=== PATIENT | female | born 1990 | race American Indian/Alaskan Native ===

== ENCOUNTER 2019-06-23 11:56 | Emergency (ER) | payer SELFPAY | END 2019-06-23 12:17 | disposition left against medical advice (07) | LOC: ED 11:56 | DX: R07.89 Other chest pain (principal); Z53.21 Procedure and treatment not carried out due to patient leaving prior to being seen by health care provider | CPT/HCPCS: 93005; 93010 ==

== ENCOUNTER 2019-06-25 11:38 | Emergency (ER) | payer SELFPAY ==
--- NOTE | 2019-06-25 11:55 | Emergency Department Report ---
Blank Doc - Documentation Documentation: 29 year old female 2 weeks presents with white discharge and pelvic p ain severe. history of A2 his initial assessment/diagnostic orders/clinical plan/treatment(s) is/are subject to change based on patient's health status, clinical progression and re-assessment by fellow clinical providers in the ED. Further treatment and workup at subsequent clinical providers discretion. Patient/guardians urged not to elope from the ED as their condition may be serious if not clinically assessed and managed. Initial orders include: Labs and us with UA possible pelvic exam
[2019-06-25 12:39] LABS: Amorphous Crystals,Urine Few; Bilirubin,Urine NEG (Negative); Blood,Urine NEG (Negative); Color,Urine Yellow (Yellow); Mucus,Urine 2+ /HPF; Protein,Urine <15 mg/dL mg/dL (Negative); Urobilinogen,Urine < 2.0 mg/dL (<2.0)
[2019-06-25] MEDS ORDERED: TYLENOL PO ONE (13:20)
--- NOTE | 2019-06-25 13:40 | Emergency Department Report ---
ED Female HPI - General Chief complaint: Abdominal Pain Stated complaint: LEG PAIN/2WKS /NAUSEA Time Seen by Provider: 06/25/19 11:49 Source: patient, EMS Mode of arrival: Wheelchair Limitations: No Limitations - History of Present Illness Initial comments: This is a 29-year-old female presenting for her lower pelvic pain for the past week. Patient states she just found out a couple days ago that she was . Patient sustained a stretcher. Was 05/31/2019. Patient states her cycles are usually regular every month. She denies vaginal bleeding, vaginal discharge or dysuria MD Complaint: pelvic pain - Related Data Previous Rx's Medication Instructions Recorded Last Taken Type Acetaminophen [Acetaminophen 8 650 mg PO Q8H #30 tablet.er 06/25/19 Unknown Rx Hour] Allergies Allergy/AdvReac Type Severity Reaction Status Date / Time diphenhydramine Allergy Hives Verified 06/25/19 11:39 [From Benadryl] metoclopramide [From Reglan] Allergy Hives Verified 06/25/19 11:39 peanut Allergy Hives Verified 06/25/19 11:39 ED Review of Systems ROS: Stated complaint: LEG PAIN/2WKS /NAUSEA Other details as noted in HPI Comment: All other systems reviewed and negative ED Past Medical Hx - Past Medical History Hx Asthma: Yes - Surgical History Additional Surgical History: umbilical hernia repair - Social History Smoking Status: Never Smoker Substance Use Type: None - Medications Home Medications: Home Medications Medication Instructions Recorded Confirmed Last Taken Type Acetaminophen [Acetaminophen 8 650 mg PO Q8H #30 tablet.er 06/25/19 Unknown Rx Hour] ED Physical Exam - General Limitations: No Limitations General appearance: alert, in no apparent distress - Head Head exam: Present: atraumatic, normocephalic - Eye Eye exam: Present: normal appearance - ENT ENT exam: Present: mucous membranes moist - Neck Neck exam: Present: normal inspection - Respiratory Respiratory exam: Present: normal lung sounds bilaterally. Absent: respiratory distress - Cardiovascular Cardiovascular Exam: Present: regular rate, normal rhythm. Absent: systolic murmur, diastolic murmur, rubs, gallop - GI/Abdominal GI/Abdominal exam: Present: soft, normal bowel sounds - Extremities Exam Extremities exam: Present: normal inspection - Back Exam Back exam: Present: normal inspection - Neurological Exam Neurological exam: Present: alert, oriented X3 - Psychiatric Psychiatric exam: Present: normal affect, normal mood - Skin Skin exam: Present: warm, dry, intact, normal color. Absent: rash ED Course Vital Signs 06/25/19 06/25/19 11:46 15:14 Temperature 98.3 F Pulse Rate 77 71 Respiratory 18 16 Rate Blood Pressure 110/56 Blood Pressure 112/64 [Left] O2 Sat by Pulse 100 100 Oximetry ED Medical Decision Making - Lab Data Laboratory Last Values HCG, Quant 16683 mIU/mL (0-4) H 06/25/19 12:21 Urine Color Yellow (Yellow) 06/25/19 12:02 Urine Turbidity Clear (Clear) 06/25/19 12:02 Urine pH 7.0 (5.0-7.0) 06/25/19 12:02 Ur Specific [place] 1.020 (1.003-1.030) 06/25/19 12:02 Urine Protein <15 mg/dl mg/dL (Negative) 06/25/19 12:02 Urine Glucose (UA) Neg mg/dL (Negative) 06/25/19 12:02 Urine Ketones Neg mg/dL (Negative) 06/25/19 12:02 Urine Blood Neg (Negative) 06/25/19 12:02 Urine Nitrite Neg (Negative) 06/25/19 12:02 Urine Bilirubin Neg (Negative) 06/25/19 12:02 Urine Urobilinogen < 2.0 mg/dL (<2.0) 06/25/19 12:02 Ur Leukocyte Esterase Neg (Negative) 06/25/19 12:02 Urine WBC (Auto) 1.0 /HPF (0.0-6.0) 06/25/19 12:02 Urine RBC (Auto) 3.0 /HPF (0.0-6.0) 06/25/19 12:02 U Epithel Cells (Auto) 2.0 /HPF (0-13.0) 06/25/19 12:02 Amorphous Crystals Few 06/25/19 12:02 Urine Mucus 2+ /HPF 06/25/19 12:02 Blood Type B NEGATIVE 06/25/19 12:34 Antibody Screen Negative 06/25/19 12:34 Ord Rhogam Gestat Weeks <11 WEEKS 06/25/19 12:34 - Radiology Data Radiology results: report reviewed, image reviewed ULTRASOUND OBSTETRIC Indication: SEVERE PELVIC PAIN Findings: There is a twin, intrauterine [place]-rump length fetus a = 0.87 cm = 6 weeks, 6 day(s). [place]-rump length for fetus B = 16.6 mm equals 8 weeks, 1 day heart rate is 69 for twin a and 163 for twin B beats per minute. There is a 1.8 cm cyst in the left ovary. The right ovary is unremarkable. Impression: There is a twin intrauterine . There is discrepancy in size and heart rate between the fetuses. This will need to be followed as the progresses. Signer Name: Kevin Huang MD Signed: 06/25/2019 2:00 PM Workstation Name: [id number] Transcribed By: SS Dictated By: Kevin Huang MD Electronically Authenticated By: Kevin Huang MD Signed Date/Time: 06/25/19 1400 - Medical Decision Making 29-year-old female presents with pelvic pain in between gestation. Patient had no abnormal findings in the ED. Ultrasound shows twin gestation, see report above. Discussed with the patient results and findings. All labs were within normal limits. Discussed the patient to follow-up with [facility]. Vital signs are normal she is in no acute or respiratory distress. Patient understands instructions and states she will follow up with her [facility] at [place] to 3 days. - Differential Diagnosis UTI, ectopic, Critical care attestation.: If time is entered above; I have spent that time in minutes in the direct care of this critically ill patient, excluding procedure time. ED Disposition Clinical Impression: Twin gestation in first trimester, Pelvic pain during Disposition: -01 TO HOME OR SELFCARE Is pt being admited?: No Does the pt Need Aspirin: No Condition: Stable Instructions: Morning Sickness (ED), (ED), Abdominal Pain (ED), Abdominal Pain in (ED) Additional Instructions: Make sure to follow up with the [facility] at [facility] as discussed. Take all your medications as you've been prescribed. If you have any worsening symptoms or develop new symptoms please return to ED immediately. Prescriptions: Acetaminophen [Acetaminophen 8 Hour] 650 mg PO Q8H #30 tablet.er Referrals: PRIMARY CAREMD [Primary Care Provider] - 3-5 Days [facility] [Outside] - 3-5 Days [facility] [Provider Group] - 3-5 Days [facility] [Provider Group] - 3-5 Days Forms: Accompanied Note, Work/School Release Form(ED) Time of Disposition: 14:15
--- NOTE | 2019-06-25 14:04 | Ultrasound Report ---
ULTRASOUND OBSTETRIC Indication: SEVERE PELVIC PAIN Findings: There is a twin, intrauterine [place]-rump length fetus a = 0.87 cm = 6 weeks, 6 day(s). [place]-rump length for fetus B = 16.6 mm equals 8 weeks, 1 day heart rate is 69 for twin a and 163 for twin B beats per minute. There is a 1.8 cm cyst in the left ovary. The right ovary is unremarkable. Impression: There is a twin intrauterine . There is discrepancy in size and heart rate between the fetus es. This will need to be followed as the progresses. Signer Name: Kevin Huang MD Signed: 06/25/2019 2:00 PM Workstation Name: [id number]
--- NOTE | 2019-06-25 14:04 | Ultrasound Report ---
ULTRASOUND OBSTETRIC Indication: SEVERE PELVIC PAIN Findings: There is a twin, intrauterine [place]-rump length fetus a = 0.87 cm = 6 weeks, 6 day(s). [place]-rump length for fetus B = 16.6 mm equals 8 weeks, 1 day heart rate is 69 for twin a and 163 for twin B beats per minute. There is a 1.8 cm cyst in the left ovary. The right ovary is unremarkable. Impression: There is a twin intrauterine . There is discrepancy in size and heart rate between the fetus es. This will need to be followed as the progresses. Signer Name: Kevin Huang MD Signed: 06/25/2019 2:00 PM Workstation Name: [id number]
[2019-06-25 15:15] VITALS: BP 112/64
== END 2019-06-25 15:14 | disposition home or self-care (01) ==
LOC: ED 11:38
DX: O30.001 Twin pregnancy, unspecified number of placenta and unspecified number of amniotic sacs, first trimester (principal); O99.511 Diseases of the respiratory system complicating pregnancy, first trimester; J45.909 Unspecified asthma, uncomplicated; Z3A.01 Less than 8 weeks gestation of pregnancy; Z79.899 Other long term (current) drug therapy; Z88.8 Allergy status to other drugs, medicaments and biological substances; Z91.010 Allergy to peanuts
CPT/HCPCS: 36415; 76801; 76802; 76817; 81001; 84702; 86850; 86900; 86901; 96372; 99284

== ENCOUNTER 2019-06-30 23:49 | Emergency (ER) | payer SELFPAY | END 2019-07-01 00:11 | disposition left against medical advice (07) | LOC: ED 23:49 | DX: Z53.21 Procedure and treatment not carried out due to patient leaving prior to being seen by health care provider (principal) ==